=== PATIENT | male | born 1990 | race Asian ===

== ENCOUNTER 2021-03-06 17:07 | Emergency (ER) | payer OTHER ==
[~2021-03-06] VITALS: Ht 167.6 cm; Wt 62.7 kg
[2021-03-06] MEDS ORDERED: PERTUSS(ACELL),DIPH,TET VAC/PF 0.5 ML SYRINGE IM. ONE (17:45)
[2021-03-06] MEDS ORDERED: LIDOCAINE 1% 10 ML VIAL PERC ONE (17:45)
[2021-03-06] MEDS ORDERED: BUPIVACAINE HCL/PF 0.25% 30 ML VIAL PERC ONE (17:45)
[2021-03-06] MEDS ORDERED: HYDROCODONE/ACETAMINOPHEN 5-325 MG TABLET PO ONE (17:45)
[2021-03-06 19:36] VITALS: BP 104/71
[2021-03-06] MEDS ORDERED: BACITRACIN 0.9 GM PACKET OINTMENT TP ONE (19:45)
== END 2021-03-06 20:45 | disposition home or self-care (01) ==
LOC: EMS 17:07
DX: S61.211A Laceration without foreign body of left index finger without damage to nail, initial encounter (principal); S61.213A Laceration without foreign body of left middle finger without damage to nail, initial encounter; F17.210 Nicotine dependence, cigarettes, uncomplicated; W26.0XXA Contact with knife, initial encounter; Y93.89 Activity, other specified; Y92.89 Other specified places as the place of occurrence of the external cause; Y99.8 Other external cause status
CPT/HCPCS: 12002; 73130; 90471; 90715; 96372; 99284; J0690; J3490 ×2

== ENCOUNTER 2025-09-20 13:13 | Emergency (ER) | payer OTHER ==
[~2025-09-20] VITALS: Ht 167.6 cm; Wt 63.6 kg
[2025-09-20 13:19] VITALS: BP 115/70; PULSE 67; RESP 18; TEMP 98.1; O2SAT 97
[2025-09-20] MEDS: FLUORESCEIN SODIUM 1 MG STRIP OU ONE (14:14)
[2025-09-20] MEDS: PROPARACAINE HCL 0.5% 15 ML OPHTHALMIC SOLUTION OU ONE (14:14)
[2025-09-20] MEDS ORDERED: ERYT3.5O8 OS (15:04)
[2025-09-20] MEDS ORDERED: HYDR-4062 PO (15:04)
== END 2025-09-20 15:17 | disposition home or self-care (01) ==
LOC: EMS 13:20
DX: S05.02XA Injury of conjunctiva and corneal abrasion without foreign body, left eye, initial encounter (principal); F17.210 Nicotine dependence, cigarettes, uncomplicated; W44.9XXA Unspecified foreign body entering into or through a natural orifice, initial encounter; Y93.89 Activity, other specified; Y92.89 Other specified places as the place of occurrence of the external cause; Y99.8 Other external cause status
CPT/HCPCS: 99173; 99283